=== PATIENT | male | born 1980 | race Caucasian/White ===

== ENCOUNTER 2019-03-08 19:21 | Observation (INO) ==
[2019-03-08 20:05] LABS: Basophils % 0.5 %; Eosinophils # 0.1 K/mcL (0.0-0.6); Hematocrit 25.9 % (37.5-50.1); Hemoglobin 9.2 g/dL (12.9-16.9); Immature Granulocytes % 0.9 % (0-4); Lymphocytes # 1.3 K/mcL (0.6-4.6); Mean Corpuscular HGB Conc 35.5 g/dL (31.6-35.5); Mean Corpuscular Hemoglobin 27.6 pg (28.0-33.3); Mean Corpuscular Volume 77.8 fL (83.0-100.0); Mean Platelet Volume 10.1 fL (9.4-12.4); Monocytes # 0.6 K/mcL (0.0-1.3); Monocytes % 6.6 %; Neutrophils # 6.7 K/mcL (1.6-8.9); Nucleated Red Blood Cells 0.2 /100 WBC (0); Platelet Count 125 K/mcL (140-400); Red Blood Count 3.33 M/mcL (4.19-5.50); Red Cell Distribution Width 21.2 % (11.5-14.5)
[2019-03-08] MEDS ORDERED: Piperacillin/Tazobactam 3.375 GM in 0.9 % Sodium Chloride Mini Bag 100 ML IVPB ONE (20:14)
[2019-03-08] MEDS ORDERED: 0.9 % Sodium Chloride 1,000 ML IVC STA (20:14)
[2019-03-08] MEDS ORDERED: Ondansetron 4 MG/2 ML VIAL IVP STA (20:14)
[2019-03-08] MEDS ORDERED: Ketorolac 15 MG/ML VIAL IVP ONE (20:21)
--- NOTE | 2019-03-08 20:22 | Emergency Department Note ---
Disposition Clinical Impression: Right knee skin infection, Hyperglycemia Cellulitis Qualifiers: Site of cellulitis: extremity Site of cellulitis of extremity: lower extremity Laterality: right Qualified Code(s): L03.115 - Cellulitis of right lower limb Anemia Qualifiers: Anemia type: unspecified type Qualified Code(s): D64.9 - Anemia, unspecified Disposition: Admitted As Inpatient Condition: Good Extremity Problem HPI - General Chief complaint: ED Extremity Problem,Nontraumatic Stated complaint: Infection in rt knee Time Seen by Provider: 03/08/19 19:39 Source: patient Limitations: no limitations Nursing Notes Reviewed: Yes Vital Signs Reviewed: Yes - History of Present Illness HPI Narrative: 38-year-old male who presents emergency Department with complaint of right knee pain. He is 2 months status post right total knee replacement with Dr. Hallman. He was sent from his primary care office due to concern for infection. He has apparently been on outpatient clindamycin for approximately 10 days without significant improvement. He is actually noted worsening of the swelling and drainage from the area over the last couple of days. 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 The pain is at the incision site and now swelling to the posterior area of his knee. He denies any fever, chills, chest pain, nausea, vomiting, headache, spread of the infection. He denies any fall or trauma to the area. Pain Scale: 10 - Related Data Home Medications Medication Instructions Recorded Confirmed Escitalopram [Lexapro] 20 mg PO DAILY 01/04/19 03/08/19 Gabapentin 800 mg PO TID 01/04/19 03/08/19 Insulin Glargine,Hum.rec.anlog 45 unit SQ HS 01/04/19 03/08/19 [Basaglar Kwikpen U-100] Insulin LISPRO [Admelog] 10 unit SQ TIDWM 01/04/19 03/08/19 Meloxicam 15 mg PO DAILY 01/04/19 03/08/19 Previous Rx's Medication Instructions Recorded Cephalexin [Keflex] 500 mg PO BID #12 capsule 03/09/19 Allergies Allergy/AdvReac Type Severity Reaction Status Date / Time No Known Allergies Allergy Verified 01/04/19 10:33 Review of Systems: ROS per history of present illness, all other systems reviewed and negative or normal. All systems ED: reviewed and negative except as stated. Review of Systems: As Per HPI Past Medical History - Past Medical History Medical history: Reports: diabetes, seizures, other Surgical history: Reports: cholecystectomy Psychiatric history: Reports: no psych history - Social History Smoking Status: Never smoker Smokeless Tobacco Status: No Alcohol use: Reports: none Drug use: Reports: none Physical Exam - General Limitations: no limitations General appearance: alert, in no apparent distress - Head Head exam: atraumatic, normocephalic - Eye Eye exam: Present: normal appearance, PERRL - ENT ENT exam: normal exam, normal oropharynx - Neck Neck exam: Present: normal inspection, full ROM - Chest Chest inspection: Present: normal inspection, symmetric chest wall rise - Respiratory Respiratory exam: Present: normal lung sounds bilaterally. Absent: respiratory distress, wheezes - Cardiovascular Cardiovascular exam: Present: regular rate, normal rhythm - Abdominal Exam Abdominal exam: Present: soft, Non-Tender. Absent: distention, guarding, rebound - Expanded Lower Extremity Exam 1 - right knee incision shows erythema, warmth, and fluctuance along bilateral edges of the incision site. There is open, draining wound with purulence at the top, approximately [id number]. He has only minimally decreased active and passive range of motion of the right knee when compared with the right. There is mild appreciable swelling along the posterior right calf and knee when compared to the left. - Neurological Exam Neurological exam: Present: alert, oriented X3 - Psychiatric Psychiatric exam: Present: normal affect, normal mood - Skin Skin exam: Present: warm, dry, intact Course - Reevaluation(s) Reevaluation #1: Per termite control technician, the patient is negative for SVT and DVT in the right lower extremity Time: 21:14 - Consultations Consultation #1: Discussed case with Dr. Hallman, orthopedic surgeon who performed the surgery who recommends admission and he will consult on the case. He does not make any recommendations in terms of antibiotic or imaging at this point. Time: 20:18 Vital Signs Temperature 98.3 F 03/08/19 19:35 Pulse Rate 109 03/08/19 19:35 Respiratory Rate 20 03/08/19 19:35 Blood Pressure 130/86 03/08/19 19:35 O2 Sat by Pulse Oximetry 95 03/08/19 19:35 Temperature 98.3 F 03/08/19 19:35 Pulse Rate 109 03/08/19 19:35 Respiratory Rate 20 03/08/19 19:35 Blood Pressure 130/86 03/08/19 19:35 O2 Sat by Pulse Oximetry 95 03/08/19 19:35 Oxygen Delivery Oxygen Delivery Room Air Extremity Problem, Nontraumati - MDM Narrative Medical decision making narrative: 2-year-old male who presents the emergency department with complete of right knee incision infection. He was sent from his primary care office. He had right total knee replacement with Dr. Hallman on 01/04/19. He has been seen in the emergency department and was placed on a ten-day course of clindamycin and is made no significant improvement in his symptoms. He has now failed outpatient antibiotics. His vital signs are stable upon arrival though he is mildly tachycardic but otherwise has no fever or hypotension. He does not appear septic. He does have a mild decreased range of motion in the right knee and it does appear to have at least superficial infection of the right knee and incision. There is purulent drainage from the top of the incision with erythema, warmth, and fluctuance surrounding the incision. At this point he will require evaluation by Dr. Hallman. Initiated the patient on IV antibiotics, vancomycin and Zosyn along with fluids, Toradol and Zofran. There is no significant leukocytosis, baseline anemia and baseline hyponatremia as well as hyperglycemia. Lactate 1.0. I discussed the case with Dr. Hallman who will make the recommendations regarding imaging or antibiotic choice at this point and recommends admission to the hospitalist and he will consult on to see the patient in the morning. Discussed case with on-call hospitalist Dr. Hallman who agrees with plan for admission and accepts the patient to the inpatient service. Patient agrees with and understands course of treatment plan including plan for admission. All questions answered. - Medical Records Medical records reviewed: Yes I reviewed the patient's medical records. - Lab Data Lab results reviewed: Yes I reviewed the patient's lab results. Result diagrams: 03/09/19 07:02 03/09/19 07:02 Lab Results 03/08/19 03/08/19 03/08/19 Range/Units 19:54 19:54 19:54 WBC 8.8 (4.3-11.1) K/mcL RBC 3.33 L (4.19-5.50) M/mcL Hgb 9.2 L (12.9-16.9) g/dL Hct 25.9 L (37.5-50.1) % MCV 77.8 L (83.0-100.0) fL MCH 27.6 L (28.0-33.3) pg MCHC 35.5 (31.6-35.5) g/dL RDW 21.2 H (11.5-14.5) % Plt Count 125 L (140-400) K/mcL MPV 10.1 (9.4-12.4) fL Immature Gran % 0.9 (0-4) % Seg Neutrophils % 76.0 % Lymphocytes % 15.0 % Monocytes % 6.6 % Eosinophils % 1.0 % Basophils % 0.5 % Neutrophils # 6.7 (1.6-8.9) K/mcL Lymphocytes # 1.3 (0.6-4.6) K/mcL Monocytes # 0.6 (0.0-1.3) K/mcL Eosinophils # 0.1 (0.0-0.6) K/mcL Basophils # 0.0 (0.0-0.2) K/mcL Nucleated RBCs/100 WBC 0.2 H (0) /100 WBC Sodium 134 L (136-145) mEq/L Potassium 4.0 (3.5-5.1) mEq/L Chloride 100 (98-107) mEq/L Carbon Dioxide 25 (23-29) mEq/L BUN 11 (6-20) mg/dL Creatinine 0.81 (0.70-1.30) mg/dL Est GFR ( Amer) > 60 (> 60) Est GFR (Non-Af Amer) > 60 (> 60) BUN/Creatinine Ratio 14 (6-26) Glucose 353 H (70-105) mg/dL Calculated Osmolality 292 (280-300) Lactic Acid 1.0 (0.5-2.2) mmol/L Calcium 9.7 (8.6-10.3) mg/dL Attestation Statement - Attestation Attestation: I have seen this patient with the resident physician, I have personally evaluated this patient. I had reviewed the chart and document dictation by the resident physician and aM in agreement with the information documented by the resident physician. Please see documentation by the resident physician for complete chart including past medical history, family medical history, review of systems, current history and physical and laboratory and imaging studies. I was present for all procedures, provided direct supervision for all proced ures, was present for the entirety of all procedures and provided direct guidance during the procedures. Please see documentation by the resident physician for any procedures performed.
[2019-03-08 20:37] LABS: BUN/Creatinine Ratio 14 (6-26); Blood Urea Nitrogen 11 mg/dL (6-20); Calcium 9.7 mg/dL (8.6-10.3); Carbon Dioxide 25 mEq/L (23-29); Chloride 100 mEq/L (98-107); Glucose 353 mg/dL (70-105); Osmolality,Calculated 292 (280-300); Sodium 134 mEq/L (136-145); eGFR For Non-African Americans > 60 (> 60)
--- NOTE | 2019-03-08 20:52 | Emergency Department Note ---
Disposition Clinical Impression: Cellulitis, Right knee skin infection Disposition: Admitted As Inpatient Condition: Fair Referrals: NONE,PCP [Primary Care Provider] - Forms: ED Satisfaction Letter General Adult HPI - General Chief complaint: ED Extremity Problem,Nontraumatic Stated complaint: Infection in rt knee Time Seen by Provider: 03/08/19 19:39 Source: patient Limitations: no limitations - History of Present Illness Pain Scale: 10 - Related Data Home Medications Medication Instructions Recorded Confirmed Escitalopram [Lexapro] 10 mg PO DAILY 01/04/19 01/04/19 Gabapentin 800 mg PO TID 01/04/19 01/04/19 Insulin Glargine,Hum.rec.anlog 45 unit SQ HS 01/04/19 01/04/19 [Basaglar Kwikpen U-100] Insulin LISPRO [Admelog] 10 unit SQ TID 01/04/19 01/04/19 Meloxicam 15 mg PO DAILY 01/04/19 01/04/19 Allergies Allergy/AdvReac Type Severity Reaction Status Date / Time No Known Allergies Allergy Verified 01/04/19 10:33 Past Medical History - Past Medical History Medical history: Reports: diabetes, seizures, other Surgical history: Reports: cholecystectomy Psychiatric history: Reports: no psych history - Social History Smoking Status: Never smoker Smokeless Tobacco Status: No Alcohol use: Reports: none Drug use: Reports: none Physical Exam - General Limitations: no limitations General appearance: alert, in no apparent distress Course Vital Signs Temperature 98.3 F 03/08/19 19:35 Pulse Rate 109 03/08/19 19:35 Respiratory Rate 20 03/08/19 19:35 Blood Pressure 130/86 03/08/19 19:35 O2 Sat by Pulse Oximetry 95 03/08/19 19:35 Temperature 98.3 F 03/08/19 19:35 Pulse Rate 109 03/08/19 19:35 Respiratory Rate 20 03/08/19 19:35 Blood Pressure 130/86 03/08/19 19:35 O2 Sat by Pulse Oximetry 95 03/08/19 19:35 Oxygen Delivery Oxygen Delivery Room Air Medical Decision Making - Lab Data Result diagrams: 03/08/19 19:54 03/08/19 19:54 Lab Results 03/08/19 03/08/19 03/08/19 Range/Units 19:54 19:54 19:54 WBC 8.8 (4.3-11.1) K/mcL RBC 3.33 L (4.19-5.50) M/mcL Hgb 9.2 L (12.9-16.9) g/dL Hct 25.9 L (37.5-50.1) % MCV 77.8 L (83.0-100.0) fL MCH 27.6 L (28.0-33.3) pg MCHC 35.5 (31.6-35.5) g/dL RDW 21.2 H (11.5-14.5) % Plt Count 125 L (140-400) K/mcL MPV 10.1 (9.4-12.4) fL Immature Gran % 0.9 (0-4) % Seg Neutrophils % 76.0 % Lymphocytes % 15.0 % Monocytes % 6.6 % Eosinophils % 1.0 % Basophils % 0.5 % Neutrophils # 6.7 (1.6-8.9) K/mcL Lymphocytes # 1.3 (0.6-4.6) K/mcL Monocytes # 0.6 (0.0-1.3) K/mcL Eosinophils # 0.1 (0.0-0.6) K/mcL Basophils # 0.0 (0.0-0.2) K/mcL Nucleated RBCs/100 WBC 0.2 H (0) /100 WBC Sodium 134 L (136-145) mEq/L Potassium 4.0 (3.5-5.1) mEq/L Chloride 100 (98-107) mEq/L Carbon Dioxide 25 (23-29) mEq/L BUN 11 (6-20) mg/dL Creatinine 0.81 (0.70-1.30) mg/dL Est GFR ( Amer) > 60 (> 60) Est GFR (Non-Af Amer) > 60 (> 60) BUN/Creatinine Ratio 14 (6-26) Glucose 353 H (70-105) mg/dL Calculated Osmolality 292 (280-300) Lactic Acid 1.0 (0.5-2.2) mmol/L Calcium 9.7 (8.6-10.3) mg/dL Attestation Statement - Attestation Attestation: I have seen this patient with the resident physician, I have personally evaluated this patient. I had reviewed the chart and document dictation by the resident physician and aM in agreement with the information documented by the resident physician. Please see documentation by the resident physician for complete chart including past medical history, family medical history, review of systems, current history and physical and laboratory and imaging studies. I was present for all procedures, provided direct supervision for all procedures, was present for the entirety of all procedures and provided direct guidance during the procedures. Please see documentation by the resident physician for any procedures performed. Patient was sent from primary care office for admission to the hospital for right knee infection he had a knee replacement to have months ago he was seen in the emergency department 10 days ago for a early appearing infection at the superior aspect of his knee replacement incision, the patient reports it was slightly red had a little bit of drainage at that time he was put on clindamycin and completed this, he is scheduled to see his orthopedic surgeon on Friday but saw his primary care doctor today who did not like the appearance of his knee and sentiment, in fact took a phone call. The patient states his pain significantly increased over the last 24 hours and he had significant increased swelling developing throughout the time he was on antibiotic. On exam he is alert oriented 3 nontoxic in appearance uncomfortable in appearance. The entire superior and anterior portion of the right knee is erythematous and warm extending anterior to the patella, with some mild induration, there is a small area of opening of the skin at the superior aspect of the incision, measur ing less than 0.5 cm, I am unable to express any purulence from this. He is able to flex his knee to about 50 degrees, he does not complain of any pain in the joint with this only pain anterior to the knee and posterior to the knee. There is some definite noted induration and a suprapatellar knee effusion noted, cannot rule out joint effusion, there is some tenderness of the right calf as well. There is no lymphangitis. There is no generalized calf edema, but the edema is more within the popliteal fossa on the superior aspect of the calf. Normal distal pulses. No skin breakdown. The patient was given IV fluids IV pain medication and IV antibiotics basic laboratory studies blood cultures were ordered, orthopedics was consulted, who requested admission to the hospitalist service with consultation from himself. Patient admitted for further management.
[2019-03-08] MEDS ORDERED: Isovue-370 500 ML BOTTLE IVP ONE (21:22)
[2019-03-08] MEDS ORDERED: Naloxone 0.4 MG/ML INJ IVP PRN (22:56)
[2019-03-08] MEDS ORDERED: Ringers Solution, Lactated 1,000 ML IVC SCH (23:15)
[2019-03-08] MEDS ORDERED: Insulin DETEMIR 100 UNIT/ML X5UNITS SQ ONE (23:45)
[2019-03-08] MEDS ORDERED: *HR* Dextrose 50 % in Water (Syg) 50 ML SYRINGE IVP PRN (23:56)
[2019-03-08] MEDS ORDERED: Dextrose Gel 15 GM/37.5 ML TUBE PO PRN ×2 (23:56)
[2019-03-08] MEDS ORDERED: Acetaminophen 325 MG TABLET PO PRN (23:56)
[2019-03-09] MEDS ORDERED: traMADol 50 MG TABLET PO PRN
--- NOTE | 2019-03-09 00:25 | Internal Med History&Physical ---
Date of Encounter: 03/08/19 Time of Encounter: 23:30 Internal Medicine - H&P: HPI Chief complaint: right knee pain Admitted From: Home Plans for Post Hospital Care: Home History of present illness: Sachin Cook is a 38 year old man with insulin dependent diabetes, autoimmune hemolytic anemia and thrombocytopenia who underwent right robotic- assisted total right knee replacement in December 2018. He required 2 units of blood postoperatively. Presents to the emergency room complaining of right knee pain and swelling has been present for the last 10 days for which she went to see his primary care physician and was prescribed oral clindamycin with no relief. He has now developed drainage over the surgical incision site noting it to be purulent. The pain has now extended to the posterior aspect of his knee. He denies fever, chills, nausea or vomiting. He denies any trauma to the area. Vitals: Reviewed General: Well-developed white male lying comfortably in bed in no acute distress. Skin: Warm and supple. HEENT: Moist mucous membranes. No conjunctivae pallor. Neck: No lymphadenopathy. No JVD. No carotid bruits. No palpable thyroid. Chest: Normal thoracic expansion. Normal breath sounds. Clear to auscultation. Heart: Normal S1 & S2; rhythmic. No rubs or murmurs. Abdomen: Non-distended, soft and non-tender to palpation. No peritoneal reaction. Extremities: Right knee circumferentially swollen, warm and boggy to palpation with tenderness elicited, the wound on surgical incision scar that seems to have underlying purulence. Neurological: Awake, alert and oriented to person, place and time. No focal deficits. Psych: Affect appropriate. Assessment/Plan 1. Right prosthetic knee infection: Early onset. Suspect secondary to Staph species. He is a diabetic with poor control which also predisposes him not only to postoperative infection but to other bacterial entities therefore will start broad coverage with vancomycin and cefepime for now pending surgical washout. Advise to obtain extensive tissue cultures after which ID consultation should be requested as he will likely need a long course of abx and follow up. Will keep NPO past midnight. No contraindications to surgery from the medical standpoint. 2. Diabetes: Glycemic values in the 300s on presentation. Will continue long acting basal with insulin sliding scale. 3. Bicytopenia: Has been evaluated by hematology and is stable. No urgent measures required at this time. 4. DVT prophylaxis: SubQ heparin ordered. Past Med Surg Social Fam HX - Past Medical History Medical history: diabetes, seizures, other Additional medical history: Iron Def. Anemia, Enlarged Spleen Psychiatric history: no psych history - Past Surgical History Surgical History: cholecystectomy - Social History Smoking Status: Never smoker Smokeless Tobacco Status: No Alcohol use: none Drug use: none - Family History Mother Family Member Ethnicity: Non- Living Status: Still Living Hx Family Cardiac Disorders: Yes (heart disease) Hx Family Respiratory Disorders: Yes (sister asthma) Hx Family Cancer: Yes (aunt melonoma) Hx Family Endocrine Disorder: Yes (dm) Hx Family Neuromuscular Disorders: No Hx Family Neurologic Disorders: Yes (seizures) Hx Family HEENT Disorders: No Hx Family Autoimmune Disorders: No Father Family Member Ethnicity: Non- Living Status: Hx Family Cancer: Yes Hx Family Endocrine Disorder: Yes (DM) Brother Family Member Ethnicity: Non- Living Status: Still Living Hx Family Endocrine Disorder: Yes (DM) Sister Family Member Ethnicity: Non- Living Status: Still Living Hx Family Endocrine Disorder: Yes (DM) Internal Medicine - H&P: Meds Escitalopram [Lexapro] 20 mg PO DAILY 01/04/19 [History] Gabapentin 800 mg PO TID 01/04/19 [History] Insulin Glargine,Hum.rec.anlog [Basaglar Kwikpen U-100] 45 unit SQ HS 01/04/19 [History] Insulin LISPRO [Admelog] 10 unit SQ TIDWM 01/04/19 [History] Meloxicam 15 mg PO DAILY 01/04/19 [History] Allergy/AdvReac Type Severity Reaction Status Date / Time No Known Allergies Allergy Verified 01/04/19 10:33 All Systems PM: A 10-system review of systems was performed and is negative for pertinent findings except as documented above in the HPI. - Constitutional Vitals: Temp Pulse Resp BP Pulse Ox 98.1 F 87 16 129/75 99 03/08/19 22:36 03/08/19 22:36 03/08/19 22:36 03/08/19 22:36 03/08/19 22:36 Exam: . Internal Med - H&P Results - Labs CBC & Chem 7: 03/08/19 19:54 03/08/19 19:54 Labs: Short CBC 04/29/19 Range/Units 19:54 WBC 8.8 (4.3-11.1) K/mcL Hgb 9.2 L (12.9-16.9) g/dL Hct 25.9 L (37.5-50.1) % Plt Count 125 L (140-400) K/mcL Neutrophils # 6.7 (1.6-8.9) K/mcL BMP 03/08/19 19:54 Sodium 134 L Potassium 4.0 Chloride 100 Carbon Dioxide 25 BUN 11 Creatinine 0.81 Glucose 353 H Calcium 9.7 - Impressions ITS Impressions Knee CT 03/08/19 21:22 IMPRESSION: 1. Status post right total knee arthroplasty with nonspecific small to moderate knee effusion present. No evidence for hardware failure or loosening. Sterility of joint fluid is indeterminate on imaging. 2. Diffuse nonspecific subcutaneous edema. Correlate clinically for cellulitis. No organized drainable fluid collection identified. No subcutaneous gas evident. 3. No acute fracture identified. D/ / Reyes Haq MD / Reyes Haq MD Interpreting Provider: Reyes Haq MD - Time Spent With Patient Total time spent is greater than 50% in coordination of care (as documented) at patient's floor/unit and/or counseling patient: Greater than 35 minutes
[2019-03-09] MEDS: *HR* OxyCODONE Immed Rel 5 MG TABLET PO PRN ×2 (00:40→06:33)
[2019-03-09] MEDS ORDERED: D5% in Water 1,000 ML IVC PRN (00:56)
[2019-03-09] MEDS ORDERED: Insulin LISPRO 300 UNITS/3 ML VIAL SQ SCH ×2 (01:00)
[2019-03-09] MEDS ORDERED: Cefepime HCl 2,000 MG in 0.9 % Sodium Chloride Mini Bag 100 ML IVPB SCH (06:00)
--- NOTE | 2019-03-09 06:27 | Orthopedics Progress Note ---
Date of Encounter: 03/09/19 Time of Encounter: 06:26 Subjective Interval history: Patient seen this morning, status post total knee replacement in December. Patient contacted the office with concerns with regards to the wound, patient admitted for IV antibiotics. Physical exam Right knee Small scab no erythema and no drainage Knee moves well. Neurovascularly intact. Presently no active infection seen, potentially, what was seen to be very superficial, patient to continue on the antibiotics and discharge in the morning Objective Vital signs: Vital Signs Temp Pulse Resp BP Pulse Ox 03/09/19 06:10 98.1 F 86 16 113/69 98 03/09/19 03:20 97.9 F 82 16 110/62 96 03/08/19 22:36 98.1 F 87 16 129/75 99 03/08/19 21:25 90 16 127/77 98 03/08/19 19:35 98.3 F 109 20 130/86 95 Intake and Output 03/08/19 03/08/19 03/09/19 15:59 23:59 07:59 Intake Total 100 / 100 0 / 0 Output Total 0 / 0 Balance 100 / 100 0 / 0 Intake: IV Fluids 100 / 100 Zosyn 3.375 GM In 0.9 % Sodium 100 / 100 Chloride (Mini-Bag +) 100 ML @ 25 mls/hr IVPB ONCE ONE Rx#: [id number] Oral 0 / 0 Output: Urine 0 / 0 Other: Weight 84.7 kg 85.04 kg Blood Glucose* 268 284 Patient Weight 03/09/19 23:59 Weight 85.04 kg - Labs CBC & BMP: 03/08/19 19:54 03/08/19 19:54 Labs: Abnormal lab results RBC 3.33 M/mcL (4.19-5.50) L 03/08/19 19:54 Hgb 9.2 g/dL (12.9-16.9) L 03/08/19 19:54 Hct 25.9 % (37.5-50.1) L 03/08/19 19:54 MCV 77.8 fL (83.0-100.0) L 03/08/19 19:54 MCH 27.6 pg (28.0-33.3) L 03/08/19 19:54 RDW 21.2 % (11.5-14.5) H 03/08/19 19:54 Plt Count 125 K/mcL (140-400) L 03/08/19 19:54 Nucleated RBCs/100 WBC 0.2 /100 WBC (0) H 03/08/19 19:54 Sodium 134 mEq/L (136-145) L 03/08/19 19:54 Glucose 353 mg/dL (70-105) H 03/08/19 19:54 Consult Discharge Plan - Plan Referrals: Joe Winston DO [Primary Care Provider] -
[2019-03-09] MEDS: *HR* Heparin 5,000 UNIT/ML VIAL SQ SCH ×2 (06:33→13:16)
[2019-03-09 07:11] LABS: Basophils % 0.5 %; Eosinophils # 0.1 K/mcL (0.0-0.6); Eosinophils % 2.1 %; Hematocrit 24.9 % (37.5-50.1); Hemoglobin 8.5 g/dL (12.9-16.9); Immature Granulocytes % 0.9 % (0-4); Lymphocytes # 1.2 K/mcL (0.6-4.6); Lymphocytes % 20.8 %; Mean Corpuscular HGB Conc 34.1 g/dL (31.6-35.5); Mean Corpuscular Hemoglobin 26.6 pg (28.0-33.3); Mean Corpuscular Volume 78.1 fL (83.0-100.0); Monocytes # 0.4 K/mcL (0.0-1.3); Monocytes % 6.9 %; Neutrophils # 3.9 K/mcL (1.6-8.9); Platelet Count 103 K/mcL (140-400); Red Blood Count 3.19 M/mcL (4.19-5.50); Red Cell Distribution Width 21.2 % (11.5-14.5); Segmented Neutrophils % 68.8 %
[2019-03-09 07:27] LABS: INR 1.1; Prothrombin Time 12.8 Seconds (9.4-12.1)
[2019-03-09 07:30] LABS: BUN/Creatinine Ratio 13 (6-26); Blood Urea Nitrogen 10 mg/dL (6-20); Calcium 9.1 mg/dL (8.6-10.3); Carbon Dioxide 26 mEq/L (23-29); Chloride 105 mEq/L (98-107); Glucose 254 mg/dL (70-105); Osmolality,Calculated 294 (280-300); Sodium 138 mEq/L (136-145); eGFR For Non-African Americans > 60 (> 60)
[2019-03-09] MEDS ORDERED: Gabapentin 400 MG CAPSULE PO SCH (09:00)
[2019-03-09 09:25] LABS: C-Reactive Protein 31 mg/L (Less than 10)
--- NOTE | 2019-03-09 10:13 | Discharge Summary ---
<Ganga Martinez - Last Filed: 03/09/19 10:24> Orders not resulted at time of discharge: Pending orders 03/08/19 19:54 Culture,Blood [BC] Stat 03/09/19 07:02 Culture,Blood [BC] Routine Date of Encounter: 03/09/19 Hospital course: Mr. Cook is a 38 year old male - Time Spent with Patient Total time spent providing and/or coordinating discharge services: - Discharge Medications Prescriptions: New Cephalexin [Keflex] 500 mg PO BID #12 capsule Continued Insulin LISPRO [Admelog] 10 unit SQ TIDWM Meloxicam 15 mg PO DAILY Insulin Glargine,Hum.rec.anlog [Basaglar Kwikpen U-100] 45 unit SQ HS Gabapentin 800 mg PO TID Escitalopram [Lexapro] 20 mg PO DAILY Home Medications: Escitalopram [Lexapro] 20 mg PO DAILY 01/04/19 [History] Gabapentin 800 mg PO TID 01/04/19 [History] Insulin Glargine,Hum.rec.anlog [Basaglar Kwikpen U-100] 45 unit SQ HS 01/04/19 [History] Insulin LISPRO [Admelog] 10 unit SQ TIDWM 01/04/19 [History] Meloxicam 15 mg PO DAILY 01/04/19 [History] Cephalexin [Keflex] 500 mg PO BID #12 capsule 03/09/19 [Rx] Allergies/Adverse Reactions: Allergy/AdvReac Type Severity Reaction Status Date / Time No Known Allergies Allergy Verified 01/04/19 10:33 Date of admission: 03/08/19 23:20 Primary care physician: Joe Winston DO Consults: 03/08/19 20:18 Consult to Orthopedic Surgery [CONS] Stat Consulting Provider: [facility] Reason for Consult: s/p right knee replacement, incision site infection, failed outpatient antibiotics Time Notified: 20:19 Call Completed: Yes - Constitutional Vitals: Temp Pulse Resp BP Pulse Ox 98.1 F 86 16 113/69 98 03/09/19 06:10 03/09/19 06:10 03/09/19 06:10 03/09/19 06:10 03/09/19 06:10 - Patient Status Disposition: Home, Self-Care Condition: Good - Discharge Instructions Instructions: Cellulitis (GEN) Follow Up With: Luh Mackay PAC [Physician Property Manager] - 03/16/19 1:15 pm Augustus Epperson DO [Resident] - 03/16/19 10:30 am Joe Winston DO [Primary Care Provider] - Additional Instructions: These follow-up with her primary care provider as scheduled Take all antibiotics as prescribed Come back to the ED if symptoms of severe infection such as fever, chills, nausea, vomiting or any extra drainage from the knee or excess pain - Attending Attestation I examined this patient and my medical decision-making was reviewed with the Resident Physician. I agree with the documented findings, disposition and treatment plan as described except to the extent set forth below. Patient seen and examined at bedside. Patient states he feels much better to day. He states his knee pain is resolved. He denies any fever or chills. Right knee shows no effusion, mild erythema at incision site but otherwise no evidence of large obvious deep tissue infection. Cellulitis: Mild superficial infection at the right knee incision site. Symptomatically improved. No leukocytosis, no fever. Evaluated by or so who feels the infection is superficial and no other intervention is needed other than antibiotics. Transition to oral antibiotics today and discharge home. <Bernie Ayala - Last Filed: 03/09/19 16:05> Orders not resulted at time of discharge: Pending orders 03/08/19 19:54 Culture,Blood [BC] Stat 03/09/19 07:02 Culture,Blood [BC] Routine Date of Encounter: 03/09/19 Time of Encounter: 08:45 - Discharge Diagnosis (1) Cellulitis Priority: Primary Status: Acute Qualifiers: Site of cellulitis: extremity Site of cellulitis of extremity: lower extremity Laterality: right Qualified Code(s): L03.115 - Cellulitis of right lower limb (2) DVT prophylaxis Priority: Secondary Status: Acute (3) Diabetes Priority: Secondary Status: Chronic Qualifiers: Diabetes mellitus type: type 2 Diabetes mellitus senior living insulin use: unspecified adjunct faculty for medical 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 Cook is a 38 year old male [place]-year-old man whose insulin-dependent diabetic, autoimmune hemolytic anemia, cytopenia. Right total knee replacement very 2019 where he received 2 units of blood postoperatively. He complained of right knee pain in the emergency room and swelling ambulate on for 10 days. He had seen his primary care doctor was first prescribed clindamycin with no relief. Now developed drainage at surgical incision that was purulent. He denied fevers chills nausea vomiting or trauma to the area. Orthopedic's was consulted and saw no concern for active infection within the knee and that I believe this was superficial CT knee showed diffuse nonspecific subcutaneous edema no organized drainable of fluid collection no subcutaneous gas Patient was given cefepime IV as inpatient. He will be discharged on cephalexin 500 mg twice a day for total of 7 days. Discharge discussed with: patient - Time Spent with Patient Total time spent providing and/or coordinating discharge services: Date of admission: 03/08/19 23:20 Primary care physician: Joe Winston DO Consults: 03/08/19 20:18 Consult to Orthopedic Surgery [CONS] Stat Consulting Provider: [facility] Reason for Consult: s/p right knee replacement, incision site infection, failed outpatient antibiotics Time Notified: 20:19 Call Completed: Yes Discharging clinician: Ganga Martinez Anticipated date of discharge: 03/09/19 - Constitutional Vitals: Temp Pulse Resp BP Pulse Ox 98.1 F 86 16 113/69 98 03/09/19 06:10 03/09/19 06:10 03/09/19 06:10 03/09/19 06:10 03/09/19 06:10 Exam: General: AAO 3, no acute distress, answers questions appropriately Head: normocephalic, atraumatic Eyes: JACLYN, no icterus Cardio: RRR, no mumurs, rubs, or gallops Respiratory: CTAB, no wheezing, rhonchi, rales Abd: normal bowel sounds, no gaurding or rigidity Extremties: no pedal edema, pulses equal bilaterally, warm, right lower extremity incision from knee replacement erythematous around the incision site and radiating out approximately 2 cm, no purulent drainage Skin: warm, dry, intact - Patient Status Functional capacity at discharge: independent ambulation Overall status at discharge: patient is progressing back to baseline - Diet and Activity Activity: increase activity as tolerated Diet: advance to your usual diet
[2019-03-09 11:01] VITALS: BP 121/72
[2019-03-09] MEDS ORDERED: Aminoglycoside Consult 1 EACH MC ONE (15:00)
== END 2019-03-09 15:01 | disposition home or self-care (01) ==
LOC: 3NENU 19:21 → EMEROOARM 19:21 → 3NENU 22:19
PROVIDERS: ADMIT Internal Medicine; ATTEND Internal Medicine